=== PATIENT | female | born 2000 | race Two or more races ===

== ENCOUNTER 2019-03-27 23:59 | Emergency (ER) | payer MEDICAID ==
[~2019-03-27] VITALS: Ht 162.6 cm; Wt 52.6 kg
[2019-03-28 04:40] LABS: Urine Bacteria FEW /hpf (None Seen); Urine Blood 3+ /uL (Negative); Urine Specific Gravity 1.014 (1.001-1.035); Urine WBC 536 /hpf (0 - 5); Urine WBC Clumps PRESENT /hpf (None Seen)
[2019-03-28 04:49] VITALS: BP 110/64
[2019-03-28] MEDS ORDERED: KETOROLAC TROMETH 60MG/2ML VIAL IM ONE (05:15)
[2019-03-28] MEDS ORDERED: PHENAZOPYRIDINE HCL 100 MG TAB PO ONE (05:15)
[2019-03-28] MEDS ORDERED: cefTRIAXone SOD 1,000 MG VL IM ONE (05:15)
== END 2019-03-28 05:47 | disposition home or self-care (01) ==
LOC: ER 23:59
DX: K59.00 Constipation, unspecified (principal); N39.0 Urinary tract infection, site not specified
CPT/HCPCS: 74176; 81001; 81025; 96372

== ENCOUNTER 2021-01-09 12:36 | Emergency (ER) | payer MEDICAID ==
[~2021-01-09] VITALS: Ht 162.6 cm; Wt 54.4 kg
[2021-01-09 14:07] VITALS: BP 106/61
== END 2021-01-09 14:09 | disposition home or self-care (01) ==
LOC: ER 12:36
DX: J06.9 Acute upper respiratory infection, unspecified (principal); Z20.822 Contact with and (suspected) exposure to COVID-19
CPT/HCPCS: 36415; 87426